=== PATIENT | male | born 1985 | race Caucasian/White ===

== ENCOUNTER 2019-05-23 10:55 | Day surgery (SDC) | payer OTHER ==
[~2019-05-23] VITALS: Ht 185.4 cm; Wt 204.6 kg
[~2019-05-23 10:55] MED LIST: CEPH500 PO; CRUTCH3 USE; Norco 5-325 Ta1 EACH PO; OXYACE5T PO
--- NOTE | 2019-05-23 14:12 | NUR ---
05/23/19 1412 Alejandra Guadalupe PT DESCRIBES PAIN IN RIGHT ANKLE THROBBING AND RATES PAIN 5/10. PT MEDICATED WITH IV FENTANYL PER ORDERS. PT MEDICATED FOR NAUSEA WELL. NO EMESIS AT THIS TIME. PT ABLE TO TOLERATE SIPS OF JUICE. ICE PACK APPLIED UNDER RIGHT KNEE. VSS.
== END 2019-05-23 15:01 | disposition home or self-care (01) ==
LOC: ORSCSDS 10:55
PROVIDERS: Orthopaedic Surgery
PROC: 0QSJ04Z Reposition Right Fibula with Internal Fixation Device, Open Approach (ICD-10-PCS; principal; 2019-05-23 12:30)
DX: S82.61XA Displaced fracture of lateral malleolus of right fibula, initial encounter for closed fracture (principal)
CPT/HCPCS: A9270-GY; C1713; J0171; J0690; J1100; J1885; J2250; J2405; J2704; J2765; J3010; J7120

== ENCOUNTER 2020-10-15 07:49 | Day surgery (SDC) | payer OTHER | END 2020-10-15 23:54 | disposition home or self-care (01) | LOC: MOI US 07:49 → EDSTATUS 08:00 → MOI US 08:00 | DX: L04.2 Acute lymphadenitis of upper limb (principal) | CPT/HCPCS: 38505; 76942; 88305; 88312 ==

== ENCOUNTER 2025-07-04 18:30 | Emergency (ER) | payer OTHER ==
[~2025-07-04] VITALS: Ht 188 cm; Wt 95.2 kg
[2025-07-04 18:40] VITALS: BP 122/78
[2025-07-04] MEDS ORDERED: Ketorolac Tromethamine 15mg Vial IV ONE (20:20)
[2025-07-04] MEDS ORDERED: ASPERFLEX1 EACH TOP (20:21)
[2025-07-04] MEDS ORDERED: Robaxin750 MG PO (20:21)
[2025-07-04] MEDS ORDERED: Ketorolac Tromethamine 15mg Vial IM ONE (20:25)
== END 2025-07-04 20:30 | disposition home or self-care (01) ==
LOC: ER 18:30
DX: M79.661 Pain in right lower leg (principal); M54.50 Low back pain, unspecified
CPT/HCPCS: 93971; 96372-59; 99283-25; J1885

== ENCOUNTER 2025-07-10 02:15 | Emergency (ER) | payer OTHER ==
[~2025-07-10] VITALS: Ht 188 cm; Wt 95.2 kg
[~2025-07-10 02:15] MED LIST changes: +ASPERFLEX1 EACH TOP; +Robaxin750 MG PO
[2025-07-10] MEDS ORDERED: Ketorolac Tromethamine 15mg Vial IM ONE (02:25)
[2025-07-10] MEDS ORDERED: Dexamethasone Sod Phos 10 MG/ML 1ML VIAL IM ONE (02:25)
[2025-07-10] MEDS ORDERED: GABA100 (02:25)
[2025-07-10] MEDS ORDERED: ACET500 PO (02:26)
[2025-07-10] MEDS ORDERED: AMOCLA875 PO (02:26)
[2025-07-10] MEDS ORDERED: IBUP600 PO (02:26)
[2025-07-10 02:45] VITALS: BP 133/69
== END 2025-07-10 02:45 | disposition home or self-care (01) ==
LOC: ER 02:15
DX: J03.80 Acute tonsillitis due to other specified organisms (principal); B96.89 Other specified bacterial agents as the cause of diseases classified elsewhere; Z79.899 Other long term (current) drug therapy
CPT/HCPCS: 96372; 99282-25; A9270; J1100; J1885